=== PATIENT | male | born 1965 | race Caucasian/White ===

== ENCOUNTER → 2021-05-30 | Outpatient (CLI) | payer OTHER ==
[~2021-05-30] MED LIST: AMIODARONE HCL200 MG PO; ASPIRIN CHEWABL81 MG PO; ATORVASTATIN CA20 MG PO; ELIQUIS 5 MG TAB5 MG PO; LEVEMIR FL100 UNIT/1 SQ; LIPITOR TAB 1010 MG PO; LISINOPRIL5 MG PO; LOPRESSOR 50 MG50 MG PO; NOVOLOG100 UNIT/1 SC; SOTALOL AF120 MG PO; TOPROL XL25 MG PO; XARELTO20 MG PO; ZOFRAN4 MG PO
== END ==
LOC: HEART 5 09:21
DX: Z51.81 Encounter for therapeutic drug level monitoring (principal); Z79.899 Other long term (current) drug therapy
CPT/HCPCS: 94010; 94729

== ENCOUNTER → 2022-07-16 | Outpatient (CLI) | payer OTHER | LOC: HEART 5 09:04 | DX: R06.02 Shortness of breath (principal); Z79.899 Other long term (current) drug therapy | CPT/HCPCS: 94010; 94729 ==